=== PATIENT | female | born 1975 | race African-American/Black ===

== ENCOUNTER 2021-04-13 06:00 | Day surgery (SDC) | payer OTHER, SELFPAY ==
[2021-04-12 07:37] VITALS: BMI 33.0
[2021-04-13 06:27] VITALS: BP 134/89; PULSE 61; RESP 16; TEMP 36.5; O2SAT 98
[2021-04-13 06:31] LABS: UPreg QC Valid YES; Urine Pregnancy NEGATIVE (NEGATIVE)
--- NOTE | 2021-04-13 07:29 | HO.ANESPROP2 ---
FORMERLY [facility], 1928–1983 Active Problems Active Problems: 45 yo female patient for Left Plantar Fasciotomy with [place] Past Medical History Medical History Acne Carpal tunnel syndrome Enthesopathy Impingement syndrome, shoulder Keratoconus Mass of finger of right hand Plantar fasciitis Right knee pain Sickle cell trait Family History Family history of problems with anesthesia: No Surgical History Surgical History History of hysteroscopy History of surgery Status post LASIK surgery of both eyes History of Problems with Anesthesia: No Social History Social History (Updated 04/12/21 @ 07:36 by Esvni Herron RN) Patient Tobacco Use Status: Never used Tobacco Use of substances other than those prescribed or required for medical reasons: No Are you DNR?: No Advance Directives: No Advance Directives Information Provided: Yes service: Yes ([employer]) Current occupational status: employed Current occupation: compliance at [employer] Allergies Allergy/AdvReac Type Severity Reaction Status Date / Time No Known Allergies Allergy Verified 04/13/21 06:26 Home Medications Medication Instructions Recorded Confirmed Last Taken Type etonogestrel 68 mg subdermal mg SUBDERMAL 04/06/21 04/06/21 Unknown History implant (Nexplanon) multivitamin 1 tab PO QAM 04/06/21 04/06/21 Unknown History Exam Exam Date and Time: April 13, 2021 0729 Height,Weight and Vital Signs: Height 5 ft 6 in Weight 92.986 kg Last Vital Signs Temp 97.7 F 04/13/21 06:27 Pulse 61 04/13/21 06:27 Resp 16 04/13/21 06:27 BP 134/89 04/13/21 06:27 Pulse Ox 98 04/13/21 06:27 Pertinent Lab Results Pertinent Lab Results: Laboratory Tests 04/13/21 06:16 Urine Test NEGATIVE Airway Mallampati Class: II TM Dist: >3cm Neck ROM: Full Loose/Missing/Broken Teeth: No Heart: RRR Lungs: CTAB Assessment and Plan Assessment Anesthesia Assessment: Anesthesia Plan Discussed and Chart Reviewed Final Anesthetic Review Family History of Problems with Anesthesia: No History of Problems with Anesthesia: No NPO: Yes ASA Class: II Final Preanesthetic Review: No Changes in Pt Med Stat, Meds/Allgs Chart Reviewed, Consent Obtained/Reviewed and Anes Risks/Benef Reviewed Patient Risk: Low Procedure Risk: Low Assessment/Block/Sedation in SS: Assess/Block/Sedation-SS Anesthetic Plan Anesthetic Plan: GA and MAC: Disposition: Standard PACU
--- NOTE | 2021-04-13 07:36 | MHC.SHP ---
Pre-Procedural Eval Section A Date of Service: 04/13/21 The patient is an INPATIENT: No Changes since office visit: No Cold of Flu in the past 2 weeks, No New Medical Problems, No Changes in Medication and No Patient answered all questions The History & Physical has been completed within 30 days and I have reviewed it.: Yes Section B Chief Complaint: fibromatosis Details of Present Illness: Pain left foot for several months Relevant Family History (Specify if Yes): No Relevant Social History: None Present Medications: see Short Stay Collaborative assessment Medical History: No relevant PMH History of Previous Operations: Relevant previous surgery/procedure and date(s) Allergies: Allergies Allergy/AdvReac Type Severity Reaction Status Date / Time No Known Allergies Allergy Verified 04/13/21 06:26 Exam Surgical H&P Exam: Normal: HEENT, Normal: Heart, Normal: Lungs, Normal: Extremities, Normal: Abdomen, Normal: Skin and Normal: Neurological Plan Diagnosis/Plan: Unchanged I have reviewed the history and physical and performed a pertinent physical examination on my patient. No changes have occurred unless specified.
[2021-04-13] MEDS: Lactated Ringers 1,000 ML 100 ML IVCONT (07:40)
[2021-04-13 08:25] VITALS: BP 113/79; PULSE 61; RESP 16; TEMP 36.6; O2SAT 98
--- NOTE | 2021-04-13 08:27 | P.BOP_ITS ---
Brief Operative Note Date of Service: 04/13/21 Pre-op diagnosis: Plantar fasciitis left foot Post-op diagnosis: same Procedure: Left [place] plantar fasciotomu Implants: None Surgeon: Doris Morrison Anesthesia: GLMA and local Was an Licensed Psychologist Director used for this Procedure?: No Licensed Psychologist Director: Joseph Quintana Estimated blood loss (mL): 1 Tourniquet time (min): 9 Condition: stable Disposition: PACU
[2021-04-13 08:30] VITALS: BP 132/83; PULSE 66; RESP 16; O2SAT 100
[2021-04-13 08:35] VITALS: BP 126/81; PULSE 63; RESP 16; O2SAT 100
[2021-04-13 08:40] VITALS: BP 113/79; PULSE 61; RESP 17; O2SAT 100
[2021-04-13 08:55] VITALS: BP 139/79; PULSE 61; RESP 16; TEMP 36.6; O2SAT 100
--- NOTE | 2021-04-13 12:18 | HP_ITS ---
DATE OF SERVICE: 04/13/2021 PREOPERATIVE DIAGNOSIS: Plantar fasciitis, left foot. PLANNED PROCEDURE: Left foot [place] plantar fasciotomy. PAST MEDICAL HISTORY: None. CURRENT MEDICATIONS: None. SURGICAL HISTORY: Plantar fasciotomy, right foot with EGR mass removal of the finger in 2018 and corneal LASIK in 2004. FAMILY HISTORY: Significant for cancer and hypertension. SOCIAL HISTORY: The patient is a nonsmoker. Denies any illicit drug use. 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 ALLERGIES: NO KNOWN DRUG ALLERGIES. HOSPITALIZATIONS: Denied. REVIEW OF SYSTEMS: Within normal limits. HISTORY OF PRESENT ILLNESS: Reveals a 45-year-old female, presents with tenderness, sharp pain, and stiffness in the proximal plantar aspect of the left heel, which is greater than the right heel, has been present for several years and gradually getting progressively worse. The patient had surgery to the right side and EGR tarsal tunnel release and plantar fasciotomy. The patient has had multiple conservative therapies for the left foot, including cortisone injections, change in shoes, orthotics, stretching and shock wave therapy without any success. PHYSICAL EXAMINATION: GENERAL: Reveals a pleasant, alert, well-nourished, well-developed, well-hydrated individual, who demonstrates proper attention to body habitus, in no acute distress. She is oriented to person, place, and time. NEUROLOGICAL EXAM: Reveals intact sensorium. Pain sensation is normal. Vibratory sensation is intact. Denies any anesthesias, burning, or paresthesias or tingling bilaterally. VASCULAR EXAM: DP and PT pulses are 3/4 bilaterally. Capillary refill is immediate to all digits. Skin temperature, elasticity, and turgor are normal bilaterally. Pigmentation is normal. There is no edema. DERMATOLOGICAL EXAM: Reveals normal texture, elasticity, and turgor. Heel pain. There is pain on palpation to the plantar fascia in the medial and central bands, intrinsic musculature, infracalcaneal bursa, and medial calcaneal tubercle. No pain to the posterior superior heel, Achilles or lateral compression of the heel on the left foot. ORTHOPEDIC EXAM: Reveals 5/5 muscle strength in a symmetrical fashion. She has pes planus with decreased ankle joint, dorsiflexion, range of motion with the knee extended on the left foot. PLAN: The patient is scheduled for surgery. The surgical procedure to treat the patient's foot problem was discussed in detail. We reviewed the risks of the procedure as well as not having the procedure, discussed potential surgical complications which include, but are not limited to pain, swelling, bleeding, scarring, numbness infection, delayed or nonhealing, recurrence, failure of the procedure, need for further surgery, as well as loss of toe, foot, life, or limb. Discussed use of local and IV anesthesia, the usual postoperative course. No guarantees were given. The patient indicated verbal understanding of the above mentioned conversation. We decided on performing a left foot [place] plantar fasciotomy procedure based on the patient's complaints, medical and social history, physical exam. The patient would like to proceed with surgical treatment. The patient will obtain preoperative labs as well as medical clearance for surgery and anesthesia. She is made aware to stop any and all blood thinners Dispensed prescription of narcotic medication. The patient is to avoid any NSAIDs or anti-inflammatories postoperatively and ice. She can take Tylenol or Percocet as needed for pain and the patient will be partial weightbearing to the left foot with a cast boot and crutches. Doris Morrison DPM LP/RK / [id number] DELMY
--- NOTE | 2021-04-13 20:03 | OP_ITS ---
SURGEON: Doris Morrison DPM PREOPERATIVE DIAGNOSIS: Plantar fasciitis, left foot. POSTOPERATIVE DIAGNOSIS: Plantar fasciitis, left foot. PROCEDURE PERFORMED: Left foot [place] plantar fasciotomy. ESTIMATED BLOOD LOSS: Less than 1 mL. COMPLICATIONS: None. ANESTHESIA: LMA with local consisting of 18 mL of 0.5% Marcaine plain and 2% lidocaine plain. ASSISTANTS: Joseph Quintana DPM SPECIMENS: None HEMOSTASIS: Pneumatic ankle tourniquet set at 215 mmHg for 9 minutes. INDICATIONS FOR SURGERY: The patient had painful plantar fasciitis noted to the left foot that have failed multiple types of conservative therapies. The above-mentioned surgery was discussed in detail with the patient including risks, benefits, and possible complications. No guarantees were given, and a written and oral informed consent was obtained. PROCEDURE IN DETAIL: The patient was brought to the operating room, placed on the table in the supine position. 2 g of cefazolin was administered as a prophylactic preoperative antibiotic. The left foot was anesthetized and the left foot was scrubbed, prepped, and draped in a sterile manner. Attention was directed to the plantar aspect of the left foot where in the preop area the maximal tenderness were palpated and denuded, a grid shape dots were then placed on the plantar aspect of the left foot with a marking pen approximately half a centimeter apart. The foot was then percutaneously punctured with a K-wire and the [place] wand was then introduced and the plantar fascia was ablated through each hole with the [place] wand through the plantar fascia. Areas of maximal tenderness were ablated more than once. The [place] wand was removed. Prompt capillary refill was noted to all 5 digits. The foot was then dressed with Steri-Strips, Betadine soaked gauze, 4x4s, fluffs, Kerlix, cast padding, and an Roberto bandage. Pneumatic ankle tourniquet was deflated. Prompt capillary refill was noted to all 5 digits. The patient tolerated the procedure and anesthesia well. She was transferred to the recovery room with vital signs stable and vascular status at preoperative levels. Following a period of postoperative recovery, the patient will be discharged home with written and oral postoperative instructions. The patient will follow up in my office for all postoperative followup care. The patient will be partial weightbearing in a cast boot or surgical shoe with crutches. Should avoid any nonsteroidal anti-inflammatories or any ice. Doris Morrison DPM LP/MODL / [id number] MTDD
== END 2021-04-13 09:25 | disposition home or self-care (01) ==
PROVIDERS: Anesthesiology; Visit Provider Podiatrist
PROC: (CPT 28008; principal; 2021-04-13 07:30)
DX: M72.2 Plantar fascial fibromatosis (principal)
CPT/HCPCS: 28008; 81025; J0690; J1100; J2250; J3010